=== PATIENT | female | born 1955 | race Caucasian/White ===

== ENCOUNTER → 2017-03-28 | Outpatient (CLI) | payer OTHER ==
[2015-03-02 15:23] VITALS: BP 151/73
--- NOTE | 2017-03-29 09:33 | VAS ---
HISTORY: Hypertension, shortness of breath, dizziness. Study: Carotid duplex Doppler ultrasound. Comparison: None available. Technique: Multiple [place] scale and color flow Doppler images of the right and left carotid arterial system were obtained. The vertebral arterial system was evaluated as well. Findings: Normal color flow Doppler is seen throughout the right and left carotid arterial system. Minimal at heromatous plaque formation is noted in the carotid systems bilaterally. No hemodynamically signific ant stenosis is seen based on velocity criteria. The right and left vertebral arteries demonstrate antegrade flow. IMPRESSION: 1. No hemodynamically significant stenosis. Reported By:
== END ==
LOC: RAD 12:58
PROVIDERS: ATTEND Internal Medicine
DX: I20.8 Other forms of angina pectoris (principal); R06.02 Shortness of breath; I10 Essential (primary) hypertension; R42 Dizziness and giddiness; Z82.49 Family history of ischemic heart disease and other diseases of the circulatory system
CPT/HCPCS: 93306; 93880

== ENCOUNTER → 2017-04-29 | Outpatient (CLI) | payer OTHER ==
[2015-03-02 15:23] VITALS: BP 151/73
== END ==
LOC: RAD 07:51
PROVIDERS: ATTEND Internal Medicine
DX: I20.9 Angina pectoris, unspecified (principal); R06.02 Shortness of breath; I10 Essential (primary) hypertension; R42 Dizziness and giddiness; Z82.49 Family history of ischemic heart disease and other diseases of the circulatory system

== ENCOUNTER → 2017-05-27 | Outpatient (CLI) | payer OTHER ==
[2015-03-02 15:23] VITALS: BP 151/73
[~2017-05-27] MED LIST: LEXISCAN IV ONE
== END ==
LOC: RAD 08:48
PROVIDERS: ATTEND Internal Medicine
DX: I20.8 Other forms of angina pectoris (principal); R06.02 Shortness of breath; I10 Essential (primary) hypertension; R42 Dizziness and giddiness; Z82.49 Family history of ischemic heart disease and other diseases of the circulatory system; R53.83 Other fatigue
CPT/HCPCS: 78452; 93017; A9502; J2785

== ENCOUNTER → 2017-07-23 | Outpatient (CLI) | payer OTHER ==
[2015-03-02 15:23] VITALS: BP 151/73
--- NOTE | 2017-07-23 16:04 | MG ---
Examination: Bilateral diagnostic mammogram and left breast ultrasound. Clinical history: Six-month follow-up of suspicious hypoechoic area at the 3 o'clock position in the left breast for which an ultrasound-guided biopsy was recommended, but was not performed when the les ion could not be found on the subsequent examination. Technique: Multiple digital images of both breasts were obtained. Targeted left breast ultrasound was also obtained evaluating the 3 o'clock position where a suspicious hypoechoic area was previously no nely and for which an ultrasound-guided biopsy was recommended. Comparison: 09/13/2016, 07/30/2016. Findings: The breasts are heterogeneously dense, reducing the sensitivity of mammography. Benign-appearing calc ifications and vascular calcifications are noted in the breasts bilaterally. No suspicious mass, area of architectural distortion or suspicious cluster of microcalcifications is noted. Targeted left breast ultrasound evaluating the 3 o'clock position reveals mild ductal ectasia at the 3 o'clock position approximately 2 cm from the nipple. No suspicious cystic or solid mass is noted. Impression: 1. No mammographic or sonographic evidence of malignancy. BI-RADS category 2-benign findings. Recommend routine annual screening mammogram. Diagnostic CAD was utilized and reviewed. * 0 (ZERO) - ASSESSMENT INCOMPLETE; ADDITIONAL IMAGING IS NEEDED. * 0C - ASSESSMENT INCOMPLETE, NEEDS ADDITIONAL IMAGING EVALUATION AND/OR PRIOR MAMMOGRAMS FOR COMPARI SON. * 1/1 (ONE) - NEGATIVE. * 2/II (TWO) - BENIGN FINDINGS. * 3/III (THREE) - PROBABLY BENIGN FINDING; SHORT INTERVAL FOLLOW-UP SUGGESTED. * 4/IV (FOUR) - SUSPICIOUS ABNORMALITY; BIOPSY SHOULD BE CONSIDERED. * 5/V - HIGHLY SUSPICIOUS OF MALIGNANCY; BIOPSY SHOULD BE PERFORMED. * 6/IV - KNOWN BIOPSY PROVEN MALIGNANCY-APPROPRIATE ACTION SHOULD BE TAKEN. A NEGATIVE X-RAY REPORT SHOULD NOT DELAY BIOPSY IF A DOMINANT OR CLINICALLY SUSPICIOUS MASS IS PRESENT; 4 TO 8 PERCENT OF CANCERS ARE NOT IDENTIFIED BY X-RAY. A NEGATIVE REPORT MAY REINFORCE THE CLINICAL IMPRESSION. ADENOSIS AND DENSE BREASTS MAY OBSCURE AN UNDERLYING NEOPLASM. Reported By:
== END ==
LOC: RAD 13:31
PROVIDERS: ATTEND Internal Medicine
DX: N64.59 Other signs and symptoms in breast (principal)
CPT/HCPCS: 76642; 77066

== ENCOUNTER → 2017-07-30 | Outpatient (CLI) | payer OTHER ==
[2015-03-02 15:23] VITALS: BP 151/73
--- NOTE | 2017-07-30 12:21 | RAD ---
Left shoulder, three views Indication: Fall with shoulder pain Comparison: MRI 01/25/2015 Findings: No acute fracture or malalignment is identified. The AC and glenohumeral joints are preserv ed without appreciable arthropathy. The acromiohumeral interval is within normal limits. There is no gross soft tissue injury. Impression: No acute radiographic abnormality of the left shoulder. Reported By:
--- NOTE | 2017-07-30 12:30 | RAD ---
HISTORY: Pain Study: Left humerus series Comparison: 01/19/2015 Findings: The humerus is intact. No fracture or dislocation is seen. The bones are osteopenic. The joint spaces are intact and the soft tissues are normal. IMPRESSION: Osteopenia with no acute bony abnormality. Reported By:
--- NOTE | 2017-07-30 12:47 | RAD ---
HISTORY: Fall and pain Study: Left elbow series Comparison: None Findings: No acute cortical disruption or dislocation is identified. No significant joint space effusion can b e seen. The radial head is unremarkable in its appearance. IMPRESSION: 1. Negative exam. Reported By:
== END | disposition home or self-care (01) ==
LOC: RAD 11:01
PROVIDERS: ATTEND Internal Medicine
DX: T14.90XA Injury, unspecified, initial encounter (principal); X58.XXXA Exposure to other specified factors, initial encounter; M85.822 Other specified disorders of bone density and structure, left upper arm
CPT/HCPCS: 73030; 73060; 73070

== ENCOUNTER 2019-07-02 14:53 | Observation (INO) ==
[2019-07-02 16:57] LABS: BASOPHILS # (AUTO) 0.1 X10^3/uL (0.0-0.1); BASOPHILS % (AUTO) 0.8 % (0.2-1.0); EOSINOPHILS # (AUTO) 0.1 x10^3/uL (0.0-0.2); EOSINOPHILS % (AUTO) 0.8 % (0.9-2.9); HEMATOCRIT 34.1 % (36.0-47.0); HEMOGLOBIN 11.3 g/dL (12.0-16.0); LYMPHOCYTES % (AUTO) 25.7 % (21.0-51.0); MEAN CORPUSCULAR HEMOGLOBIN 25.8 pg (27.0-34.0); MEAN CORPUSCULAR HGB CONC 33.1 g/dL (33.0-35.0); MEAN CORPUSCULAR VOLUME 77.9 fL (80.0-100.0); MEAN PLATELET VOLUME 6.7 fL (7.4-11.0); MONOCYTES % (AUTO) 6.4 % (0.0-13.0); NEUTROPHILS # (AUTO) 10.4 x10^3/uL (2.2-4.8); NEUTROPHILS % (AUTO) 66.3 % (42.0-75.0); PLATELET COUNT 542 X10^3/uL (150.0-450.0); RED BLOOD COUNT 4.38 X10^6/uL (3.5-5.4); RED CELL DISTRIBUTION WIDTH 16.1 % (11.6-16.5); WHITE BLOOD COUNT 15.6 X10^3/uL (3.6-10.0)
[2019-07-02] MEDS: TORADOL 15 MG VIAL IVP PRN (17:09)
[2019-07-02] MEDS: NS 1000 ML 1,000 ML IV SCH (17:11)
[2019-07-02 17:14] LABS: ALANINE AMINOTRANSFERASE 21 Units/L (12-78); ALBUMIN 4.1 g/dL (3.4-5.0); ALKALINE PHOSPHATASE 65 Units/L (46-116); ASPARTATE AMINO TRANSFERASE 13 Units/L (15-37); BLOOD UREA NITROGEN 17 mg/dL (7-18); CALCIUM 9.3 mg/dL (8.5-10.1); CARBON DIOXIDE 20.7 mmol/L (21-32); CHLORIDE 97 mmol/L (98-107); CREATININE 1.54 mg/dL (0.55-1.02); SODIUM 134 mmol/L (136-145); TOTAL PROTEIN 8.2 g/dL (6.4-8.2); eGFR NON BLACK RACES 36 (>60)
[2019-07-02 17:20] LABS: PLATELET MORPHOLOGY COMMENT NORMAL (NORMAL)
[2019-07-02 17:21] LABS: HYPOCHROMASIA SLIGHT
[2019-07-02] MEDS ORDERED: PROVENTIL NEB TX 0.083% 2.5MG/ 3ML NEB PRN (17:27)
[2019-07-02] MEDS ORDERED: POTASSIUM CHL 40 MEQ/NS 0.45% 500 ML IV PRN (17:34)
[2019-07-02] MEDS ORDERED: K-DUR TAB 20 MEQ PO PRN ×2 (17:34→19:33)
[2019-07-02] MEDS ORDERED: POTASSIUM CHLORIDE LIQ 20 MEQ UDC PO PRN (17:34)
[2019-07-02] MEDS ORDERED: MICRO K EXTEN CAP 10 MEQ PO PRN (17:34)
[2019-07-02] MEDS ORDERED: K-RIDER 10 MEQ/NS 100 ML 10 MEQ/100 ML BAG IV PRN (17:34)
[2019-07-02] MEDS ORDERED: POTASSIUM CHL 60 MEQ/NS 0.45% 500 ML IV PRN ×2 (17:34→19:33)
[2019-07-02] MEDS ORDERED: KLOR-CON PO PRN (17:34)
[2019-07-02 17:46] LABS: ERYTHROCYTE SEDIMENTATION RATE 40 MM/HOUR (0-20)
--- NOTE | 2019-07-02 19:01 | DR.UPDATE ---
H&P Update History and Physical Update: History and Physical reviewed and patient examined. Changes noted: Yes with the following: RETURNED TO THE OFFICE WITH COMPLAINTS OF SEVER LOWER BACK PAIN THAT RADIATES TO ABDOMEN AND PERSISTENT HYPERTENSION. SYMPTOMS REPORTEDLY STARTED THREE DAYS AGO AND HAS PROGRESSIVELY GOTTEN WORSE. SHE REPORTS TAKING HYDROCODONE AT HOME WITHOUT IMPROVEMENT IN SYMPTOMS. SHE ALSO REPORTS DYSURIA. SHE WAS ADMITTED FOR FURTHER EVALUATION AND TREATMENT. ON ADMISSION, VITALS WERE 98.1-76-20-96%-129/67. LABS WERE OBTAINED. ABNORMAL LAB VALUES INCLUDE THE FOLLOWING: WBC 15.6, HGB 11.3, HCT 34.1, PLT COUNT 542, SODIUM 134, POTASSIUM 3.3, CHLORIDE 97, CARBON DIOXIDE 20.7, CREATININE 1.54, AST 13, CRP 15.40. WE PLAN TO OBTAIN A URINALYSIS AND A LUMBAR SPINE CT. WE WILL START NORMAL SALINE AT 80ML/HR, ROCEPHIN 1G IV DAILY, TORADOL 15MG IV Q6H PRN, AND THE POTASSIUM PROTOCOL. OTHERWISE, WE WILL FOLLOW UP WITH AM LABS AND CONTINUE TO MONITOR. Prescription drug monitoring program results: PDMP was not reviewed
[2019-07-02] MEDS: MAGNESIUM SULFATE 1 GRAM/100 mL PREMIX 1 GM/100 ML BAG IV PRN ×2 (20:42→22:24)
[2019-07-02] MEDS ORDERED: RESTORIL CAP 15 MG PO PRN (20:53)
[2019-07-02] MEDS: NORCO 5/325 MG TAB PO PRN (22:24)
[2019-07-02 23:04] LABS: BILIRUBIN,URINE NEGATIVE (NEGATIVE); BLOOD/HEMOGLOBIN,URINE NEGATIVE (NEGATIVE); GLUCOSE, URINE NEGATIVE (NEGATIVE); KETONES,URINE NEGATIVE (NEGATIVE); LEUKOCYTE ESTERASE ,URINE NEGATIVE (NEGATIVE); NITRITES,URINE NEGATIVE (NEGATIVE); PH,URINE 6.5 (5.0 - 8.0); PROTEIN,URINE NEGATIVE (NEGATIVE); UROBILINOGEN,URINE NORMAL (NORMAL)
[2019-07-02 23:27] LABS: APPEARANCE,URINE CLEAR (CLEAR); COLOR,URINE YELLOW (YELLOW)
[2019-07-03] MEDS: TORADOL 15 MG VIAL IVP PRN ×2 (03:26→14:00)
--- NOTE | 2019-07-03 05:03 | RAD ---
Chest AP portable Indication: Dyspnea and cough Findings: There is no pneumothorax or effusion. There is no consolidation. Heart size is normal for technique Impression: No acute chest process. Mild COPD possible Reported By:
--- NOTE | 2019-07-03 05:19 | CT ---
CT lumbar spine without contrast Indication: Intractable back pain Technique: Helical images through the lumbar spine without contrast. Coronal and sagittal reformats provided. Comparison: No recent similar prior Findings: Limited images through the lower chest and abdominopelvic soft tissues shows no unexpected abnormality. Occasional vascular calcifications noted. There is no cortical lucency or malalignment. There is disc space narrowing at L4-L5 with disc bulge. Mild facet arthropathy seen caudally. Mild SI joint DJD noted. Disc bulge causes mild spinal canal narrowing at L4-L5 with [id number] right neural foramen narrowing. Impression: 1. Spine DJD as above 2. No osseous abnormality otherwise. Reported By:
[2019-07-03] MEDS: NS 1000 ML 1,000 ML IV SCH (05:42)
[2019-07-03 06:00] LABS: BASOPHILS # (AUTO) 0.1 X10^3/uL (0.0-0.1); BASOPHILS % (AUTO) 0.7 % (0.2-1.0); EOSINOPHILS # (AUTO) 0.3 x10^3/uL (0.0-0.2); EOSINOPHILS % (AUTO) 2.5 % (0.9-2.9); HEMOGLOBIN 10.3 g/dL (12.0-16.0); LYMPHOCYTES # (AUTO) 3.5 X10^3/uL (1.3-2.9); LYMPHOCYTES % (AUTO) 30.7 % (21.0-51.0); MEAN CORPUSCULAR HEMOGLOBIN 26.2 pg (27.0-34.0); MEAN CORPUSCULAR HGB CONC 33.2 g/dL (33.0-35.0); MEAN PLATELET VOLUME 6.9 fL (7.4-11.0); MONOCYTES # (AUTO) 0.8 x10^3/uL (0.3-0.8); MONOCYTES % (AUTO) 6.6 % (0.0-13.0); NEUTROPHILS # (AUTO) 6.9 x10^3/uL (2.2-4.8); NEUTROPHILS % (AUTO) 59.5 % (42.0-75.0); PLATELET COUNT 426 X10^3/uL (150.0-450.0); RED BLOOD COUNT 3.92 X10^6/uL (3.5-5.4); RED CELL DISTRIBUTION WIDTH 16.4 % (11.6-16.5); WHITE BLOOD COUNT 11.5 X10^3/uL (3.6-10.0)
[2019-07-03 06:17] LABS: ALANINE AMINOTRANSFERASE 16 Units/L (12-78); ALBUMIN 3.2 g/dL (3.4-5.0); ALKALINE PHOSPHATASE 57 Units/L (46-116); ASPARTATE AMINO TRANSFERASE 12 Units/L (15-37); BLOOD UREA NITROGEN 14 mg/dL (7-18); CALCIUM 8.3 mg/dL (8.5-10.1); CARBON DIOXIDE 18.9 mmol/L (21-32); CHLORIDE 102 mmol/L (98-107); COR CA(FOR HYPOALB) 8.9 mg/dL (8.5-10.1); COR NA(FOR HYPERGLY) 135 mmol/L (136-145); CREATININE 1.15 mg/dL (0.55-1.02); MAGNESIUM 2.2 mg/dL (1.7-2.9); SODIUM 134 mmol/L (136-145); TOTAL PROTEIN 6.8 g/dL (6.4-8.2); eGFR NON BLACK RACES 50 (>60)
[2019-07-03] MEDS: NORCO 5/325 MG TAB PO PRN (08:09)
[2019-07-03 08:31] VITALS: BMI 30.2
[2019-07-03] MEDS ORDERED: PHARMACY CONSULT - DOSE _____ XX SCH (12:00)
[2019-07-03] MEDS ORDERED: LOVENOX INJ 40 MG SYR SC SCH (13:00)
[2019-07-03] MEDS ORDERED: NS 100 ML IV 100 ML IV ONE (15:47)
[2019-07-03 16:18] VITALS: BP 126/77
--- NOTE | 2019-07-03 16:48 | CT ---
CT abdomen and pelvis with contrast Indication: Abdominal pain Technique: Helical CT images of the pelvis abdomen and pelvis were obtained with IV contrast. Reformatted images in the coronal and sagittal planes were also generated for review. Comparison: 03/02/2015 Findings: Subcentimeter nodules within the right lower lobe (axial image 6) and lingula (axial image 9) are unchanged since 2015 and are most certainly benign. Imaged lung bases are otherwise clear of acute infiltrate. No acute osseous abnormality. Gallbladder is absent. The liver, spleen, pancreas and adrenals are unremarkable. Both kidneys are normal apart from a small probable cyst within the upper pole of the left kidney. There is mild diverticulosis without diverticulitis of the distal colon. There is no bowel obstruction or inflammation. The appendix is normal. Intraluminal filling defect is noted within the right gonadal vein, compatible gonadal vein thrombus (see axial images 48-56 for example). The IVC and abdominal aorta are otherwise normal. The partially collapsed urinary bladder is grossly normal without stones. Uterus is absent. No free air, free fluid or lymphadenopathy is identified. Impression: Right gonadal vein thrombus. Otherwise, no additional significant abnormality identified to explain patient's abdominal pain. Mild distal colonic diverticulosis without diverticulitis and additional findings as above. Reported By:
== END 2019-07-03 17:30 | disposition home or self-care (01) ==
LOC: MED/SURG
PROVIDERS: ADMIT Internal Medicine; ATTEND Internal Medicine
CPT/HCPCS: 36415; 71010; 71045; 72131; 74177; 80053; 81003; 83735; 85025; 85652; 86140; 87086; 94760; 96367; 96374; A4216; A4222; G0378; J1885; J3475; J7030; J7050